=== PATIENT | male | born 1955 | race Caucasian/White ===

== ENCOUNTER 2019-10-21 15:30 | Emergency (ER) | payer MEDICARE, OTHER, BC ==
[2019-10-21 15:55] VITALS: BP 116/69
--- NOTE | 2019-10-21 16:32 | UC ---
Skin Complaint HPI - HPI Summary HPI Summary: 63 yo diabetic, with noted infection of the index finger nail bed x 5 days, with signficant increase in pain and size of paronychia today. No fever. Feels otherwise well although he has had a cough x 12 days. - History of Current Complaint Chief Complaint: UCSkin Time Seen by Provider: 10/21/19 16:21 Stated Complaint: RT INDEX FINGER COMPLAINT Hx Obtained From: Patient Onset/Duration: Gradual Onset, Lasting Days - 5 Skin Exposure Onset/Duration: Days Ago Timing: Constant Onset Severity: Mild Current Severity: Moderate Pain Intensity: 8 Location: Discrete, Hand (Right) Character: Swelling, Pain Aggravating Factor(s): Touch Alleviating Factor(s): Nothing Associated Signs & Symptoms: Positive: Negative - Allergy/Home Medications Allergies/Adverse Reactions: Allergies Allergy/AdvReac Type Severity Reaction Status Date / Time No Known Allergies Allergy Verified 10/21/19 15:41 Home Medications: Home Medications Atenolol TAB* [Tenormin TAB* 25 MG] 25 mg PO BID 10/21/19 [History Confirmed 08/30] Cyclobenzaprine TAB* [Flexeril 10 MG TAB*] 10 mg PO TID PRN 10/21/19 [History Confirmed 10/21/19] Diclofenac Sodium 75 mg PO BID 10/21/19 [History Confirmed 10/21/19] Gabapentin CAP(*) [Neurontin 400 mg CAP(*)] 400 mg PO TID 10/21/19 [History Confirmed 10/21/19] Hydrochlorothiazide TAB* [Hydrodiuril TAB*] 25 mg PO DAILY 10/21/19 [History Confirmed 10/21/19] Rosuvastatin Calcium 10 mg PO BEDTIME 10/21/19 [History Confirmed 10/21/19] lisinopriL [Lisinopril 2.5 MG-] 2.5 mg PO DAILY 10/21/19 [History Confirmed 08/30] metFORMIN* [Glucophage 500 MG TAB *] 500 mg PO TID 10/21/19 [History Confirmed 10/21/19] PMH/Surg Hx/FS Hx/Imm Hx Endocrine History: Diabetes, Dyslipidemia Cardiovascular History: Hypertension Psychological History: Other - left lumbar radiculopathy - Surgical History Surgical History: Yes Surgery Procedure, Year, and Place: RIGHT BELOW KNEE AMPUTAION FOR GANG SNADRINE 1973 - Family History Known Family History: Positive: Hypertension, Diabetes - Social History Occupation: Retired Lives: With Family Alcohol Use: Occasionally Substance Use Type: None Smoking Status (MU): Heavy Every Day Tobacco Smoker Type: Cigarettes Amount Used/How Often: 1 ppd Have You Smoked in the Last Year: Yes Household Exposure Type: Cigarettes Review of Systems All Other Systems Reviewed And Are Negative: Yes Constitutional: Positive: Negative Skin: Positive: Other - paronychia right index finger Eyes: Positive: Negative ENT: Positive: Negative Respiratory: Positive: Cough. Negative: Shortness Of Breath Cardiovascular: Negative: Palpitations, Chest Pain Gastrointestinal: Positive: Negative Genitourinary: Positive: Negative Motor: Positive: Negative Neurovascular: Positive: Negative Musculoskeletal: Positive: Negative Neurological: Positive: Negative Psychological: Positive: Negative Is Patient Immunocompromised?: No Physical Exam Triage Information Reviewed: Yes Appearance: Well-Appearing, Pain Distress - mild Vital Signs: Initial Vital Signs Temp 97.7 F 10/21/19 15:47 Pulse 65 10/21/19 15:47 Resp 16 10/21/19 15:47 BP 116/69 10/21/19 15:47 Pulse Ox 98 10/21/19 15:47 Eye Exam: Normal ENT: Positive: Normal ENT inspection Neck: Positive: Supple, Nontender, No Lymphadenopathy Respiratory: Positive: Lungs clear, Normal breath sounds Cardiovascular: Positive: RRR, No Murmur Musculoskeletal Exam: Normal Neurological Exam: Normal Neurological: Positive: Alert Skin Exam: Other - right index finger with 1 cm paronychial abscess. This was evacuated per verbal consent after cleansing with alcohol by lifting the cuticle with an 18 gauge needle. No incision was made. Skin: Positive: Other - erythema extends to the DIP joint. Finger rom is full. Course/Dx - Course Course Of Treatment: drainage of paronychia achieved by lifting nail bed cuticle. Cover with cephalexin given erythema. - Differential Diagnoses - Skin Complaint Differential Diagnoses: Cellulitis, Other - paronychia - Diagnoses Provider Diagnosis: Paronychia of right index finger Discharge ED - Sign-Out/Discharge Documenting (check all that apply): Patient Departure All imaging exams completed and their final reports reviewed: No Studies - Discharge Plan Condition: Good Disposition: HOME Prescriptions: Cephalexin CAP* [Keflex 500 CAP*] 500 mg PO TID #21 cap Patient Education Materials: Paronychia (ED) Referrals: Regan Keith MD [Primary Care Provider] - Additional Instructions: Ensure that you soak your finger in warm water and salt for 10 minutes at least twice today and once or twice tomorrow, depending on drainage. Take full course of antibiotics prescribed, and follow up if you have recurrent abscess. - Billing Disposition and Condition Condition: GOOD Disposition: Home
== END 2019-10-21 16:53 | disposition home or self-care (01) ==
LOC: UCCORT 15:30
DX: L03.011 Cellulitis of right finger (principal); F17.210 Nicotine dependence, cigarettes, uncomplicated; I10 Essential (primary) hypertension; E78.5 Hyperlipidemia, unspecified; E11.9 Type 2 diabetes mellitus without complications; Z79.899 Other long term (current) drug therapy; Z79.84 Long term (current) use of oral hypoglycemic drugs; Z89.511 Acquired absence of right leg below knee; Z82.49 Family history of ischemic heart disease and other diseases of the circulatory system; Z83.3 Family history of diabetes mellitus
CPT/HCPCS: 10060; 99212; G0463